=== PATIENT | male | born 1960 | race Asian ===

== ENCOUNTER 2025-03-07 10:21 | Outpatient (CLI) | payer OTHER, SELFPAY ==
--- OUTSIDE RECORDS SUMMARY | 2025-03-07 10:30 | XMS_ITS | Clinical Summary ---
Author Organization [facility] Address [address] [place] [address] Care Team Providers Care Apartment Maintenance Worker Name Role Phone Unavailable Primary Care Provider Unavailabl e Social History Tobacco Use Types Packs/Day Years Used Date Smoking Tobacco: Never Assessed Sex and Gender Information Value Date Recorded Sex Assigned at Not on file Legal Sex Male 8:22 PM CDT Gender Identity Not on file Sexual Orientation Not on file Plan of Treatment Health Maintenance Due Date Last Done Comments Colorectal Cancer Screening Colonoscopy (10 Years) 1961 Annual Physical 1964 Hepatitis C 1979 DTaP, Tdap and Td Vaccines ( 1 - Tdap) 1980 Pneumococcal Vaccine: 50+ Ye ars (1 of 1 - PCV) 2011 Zoster Vaccines (1 of 2) 2011 COVID-19 Vaccine ( - 2023-2 5 season) 2024 RSV Immunization or 60+ Years (1 - 1-dose 75+ series) 2036 Meningococcal B Vaccine Aged Out No l onger eligible based on patient's age to complete this topic Meningococcal Vaccine Aged Out No adalberto baylee eligible based on patient's age to complete this topic RSV Immunizations Under 20 Months Aged Out No longer eligible based on patient's age to complete this topic
--- NOTE | 2025-03-07 10:36 | ECG_ITS ---
Test Date: 2025-03-07 10:42:32 Measurements Intervals [place] Rate: 68 P: 51 ID: 171 QRS: 4 QRSD: 90 T: 19 QT: 374 QTc: 400 Interpretive Statements SINUS RHYTHM BASELINE ARTIFACT- III NORMAL ECG No previous ECG available for comparison Electronically Signed On 03-07-2025 10:44:25 CDT by Alireza Gaitan D.O.
== END 2025-03-07 10:22 | disposition home or self-care (01) ==
LOC: ANHCARD 10:28
PROVIDERS: PCP Internal Medicine; Visit Provider Family Medicine
DX: R07.9 Chest pain, unspecified (principal)
CPT/HCPCS: 93005

== ENCOUNTER 2025-04-06 13:19 | Emergency (ER) | payer OTHER, SELFPAY ==
--- NOTE | ~2025-04-06 | XR_ITS ---
EXAMINATION: XR chest 2V DATE: 04/06/2025 14:05 INDICATION: Left-sided chest pain TECHNIQUE: PA and lateral views of the chest were obtained. COMPARISON: None FINDINGS: The lungs are clear with no focal airspace opacities, pulmonary edema, pleural effusion or pneumothorax. The cardiomediastinal silhouette is normal. Mild to moderate thoracic spondylosis. IMPRESSION: 1. No acute cardiopulmonary disease. Reviewed, dictated and finalized at location A.
--- NOTE | 2025-04-06 13:20 | ECG_ITS ---
Test Date: 2025-04-06 13:24:25 Measurements Intervals [place] Rate: 77 P: 44 CT: 153 QRS: -1 QRSD: 92 T: 36 QT: 357 QTc: 405 Interpretive Statements SINUS RHYTHM CANNOT R/O SEPTAL INFARCT, AGE INDETERMINATE BASELINE ARTIFACT- III ABNORMAL ECG Compared to ECG 03/07/2025 10:42:32 No significant changes Electronically Signed On 04-06-2025 15:48:45 CDT by Alireza Gaitan D.O.
--- OUTSIDE RECORDS SUMMARY | 2025-04-06 13:21 | XMS_ITS | Clinical Summary ---
Author Organization [facility] Address [address] [place] [id number] Care Team Providers Care Sales And Marketing Analyst Name Role Phone Unavailable Primary Care Provider [...]
[2025-04-06 13:36] VITALS: BP 154/87; PULSE 88; RESP 17; TEMP 36.4; O2SAT 100
[2025-04-06 13:42] VITALS: PULSE 90; O2SAT 99
[2025-04-06] MEDS: ASPIRIN 81 MG CHEWABLE TABLET 324 MG PO (13:48)
[2025-04-06 13:55] LABS: Hematocrit 40.6 % (42.0-52.0); Hemoglobin 13.8 g/dL (14.0-18.0); Immature Granulocyte Percent A 0.2 % (0-0.5); Lymphocytes Absolute Auto 1.78 K/mm3 (0.9-3.2); Mean Corpuscular HGB Conc 34.0 g/dl (32-36); Mean Corpuscular Hemoglobin 30.5 pg (26-34); Mean Corpuscular Volume 89.6 fl (80-100); Nucleated Red Blood Cells Absolute Auto 0.000 K/mm3 (0.0-0.012); Nucleated Red Blood Cells Perc 0.0 % (0.0-0.2); Platelet Count Result 223 k/mm3 (150-375); Red Blood Count 4.53 M/mm3 (4.6-6.20); White Blood Count 4.3 K/mm3 (4.5-10.0)
[2025-04-06 14:08] LABS: Alanine Aminotransferase 31 U/L (6-50); Albumin Level 4.5 g/dL (3.5-5.1); Alkaline Phosphatase 47 U/L (38-126); Anion Gap 8 mmol/L (4-12); Aspartate Amino Transferase 30 U/L (17-59); Bilirubin,Total 0.9 mg/dL (0.2-1.3); Blood Urea Nitrogen 22 mg/dL (9-20); Calcium 9.5 mg/dL (8.4-10.2); Carbon Dioxide 26 mmol/L (22-30); Chloride 105 mmol/L (98-107); Estimated CRCL calculation 65 ml/min; Estimated Glomerular Filt Rate > 60; Glucose 120 mg/dL (65-110); Lipase 104 U/L (23-300); Potassium 3.9 mmol/L (3.4-5.0); Sodium 139 mmol/L (137-145); Total Protein 7.5 g/dL (6.3-8.2)
[2025-04-06 14:16] LABS: INR 1.0; Prothrombin Time 13.4 Seconds (11.1-14.7)
[2025-04-06 14:17] LABS: Partial Thromboplastin Time 29.9 Seconds (22.3-36.8)
[2025-04-06 14:18] LABS: Troponin I < 0.012 ng/mL (0.000-0.034)
--- NOTE | 2025-04-06 14:32 | ED_ITS ---
HPI - General Adult General Chief complaint: Chest Pain Stated complaint: left sided CP to shoulder and back Time Seen by Provider: 04/06/25 13:57 History of Present Illness HPI narrative: 64-year-old male presents emergency department for evaluation for intermittent left-sided chest pain. Patient reports over the last 2 months he had had infrequent left-sided chest pain that was very short lasting. Patient reports over the course of the last week he has had worsening episodes left-sided chest pain. Patient describes the pain as being very sharp and short lasting but also does describe an underlying dull pressure. Patient denies any prior cardiac history. Patient reports he did have a stress test approximately 10 years ago. Patient did have follow-up with his primary care physician on March 07 for a cold sore and was started on acyclovir at that time. Patient reports that the colds or resolved after few days any stop taking the acyclovir. Patient then began having left armpit pain a few days ago and patient does have a vesicular rash under his left arm. Patient did start retaking his home acyclovir. Related Data Allergies Allergy/AdvReac Type Severity Reaction Status Date / Time Iodinated Contrast Media Allergy Hives Verified 04/06/25 13:36 iohexol (From contrast - CT, Allergy Hives Verified 04/06/25 13:36 X-RAY) Review of Systems 2 Review of Systems: All systems reviewed & are unremarkable except as noted in HPI and below Exam 2 Narrative: APPEARANCE: Well appearing, no pain, no distress, well-nourished. HEAD: normocephalic, atraumatic. EYES: PERRLA/EOMI, conjunctivae clear. NOSE: Normal no drainage EARS:TMS clear with good light reflex. THROAT: Pharynx clear, no exudate. NECK: Supple. No adenopathy, no masses. RESPIRATORY: Airway patent, respirations nonlabored. Clear to auscultation bilaterally, no rales, rhonchi, wheezing. CARDIOVASCULAR: Regular rate and rhythm without murmurs rubs or gallops. ABDOMINAL: Soft, nontender, nondistended, normal bowel sounds MUSCULOSKELETAL: Moves all extremities. Strength/ROM intact, No edema, No calf tenderness. NEURO: Alert. Cranial nerves II through XII intact. Good gait. Good coordination SKIN: Vesicular rash under left arm Course Vital Signs Vital signs: Vital Signs Temperature 97.5 F L 04/06/25 13:36 Pulse Rate 88 04/06/25 13:36 Respiratory Rate 17 04/06/25 13:36 Blood Pressure 154/87 H 04/06/25 13:36 Pulse Oximetry 100 04/06/25 13:36 Oxygen Delivery Room Air 04/06/25 13:36 Temperature 97.5 F L 04/06/25 13:36 Pulse Rate 59 L 04/06/25 17:15 Respiratory Rate 13 04/06/25 17:15 Blood Pressure 157/91 H 04/06/25 17:15 Pulse Oximetry 100 04/06/25 17:15 Oxygen Delivery Room Air 04/06/25 13:42 Medical Decision Making MDM Narrative Medical decision making narrative: 64-year-old male presents emergency department for evaluation for intermittent chest pain and a vesicular rash. Patient is currently afebrile with no leukocytosis and hemoglobin of 13.8. Patient's INR is 1.0. Patient has no acute abnormalities on his CMP lipase is negative patient's troponin is not elevated. Chest x-ray shows no acute cardiopulmonary abnormality an EKG shows normal sinus rhythm with no evidence of infarction. Rash in left axilla as concerning for shingles. Patient was switched from a low-dose acyclovir to a higher dose valacyclovir. Patient prefers to take Tylenol and ibuprofen for pain control. Patient was encouraged of close follow-up with his primary care physician for additional outpatient cardiac testing. Patient family were also updated reasons to return to the emergency department. Patient was well- appearing at time of discharge and states that his symptoms were significantly improved. Differential Diagnosis Differential Diagnosis: Chest pain, ACS, pneumonia, shingles, pneumothorax Vital Signs Vital Signs: Vital Signs Temperature 97.5 F L 04/06/25 13:36 Pulse Rate 88 04/06/25 13:36 Respiratory Rate 17 04/06/25 13:36 Blood Pressure 154/87 H 04/06/25 13:36 Pulse Oximetry 100 04/06/25 13:36 Oxygen Delivery Room Air 04/06/25 13:36 Temperature 97.5 F L 04/06/25 13:36 Pulse Rate 59 L 04/06/25 17:15 Respiratory Rate 13 04/06/25 17:15 Blood Pressure 157/91 H 04/06/25 17:15 Pulse Oximetry 100 04/06/25 17:15 Oxygen Delivery Room Air 04/06/25 13:42 Lab Data Lab results reviewed: Yes I reviewed the patient's lab results. 04/06/25 13:50 04/06/25 13:50 Labs: Lab Results 04/06/25 04/06/25 Range/Units 13:50 16:28 WBC 4.3 L (4.5-10.0) K/mm3 RBC 4.53 L (4.6-6.20) M/mm3 Hgb 13.8 L (14.0-18.0) g/dL Hct 40.6 L (42.0-52.0) % MCV 89.6 (80-100) fl MCH 30.5 (26-34) pg MCHC 34.0 (32-36) g/dl RDW 11.9 (11.5-14.5) % Plt Count 223 (150-375) k/mm3 MPV 9.1 (7.4-10.4) fl Immature Gran % (Auto) 0.2 (0-0.5) % Neut % (Auto) 44.9 L (45.5-73.1) % Lymph % (Auto) 41.3 (18.3-44.2) % Cannon % (Auto) 11.1 H (2.6-8.5) % Eos % (Auto) 1.6 (0-4.4) % Baso % (Auto) 0.9 (0.2-1.2) % Lymph # (Auto) 1.78 (0.9-3.2) K/mm3 Cannon # (Auto) 0.5 (0.1-0.6) K/mm3 Eos # (Auto) 0.1 (0-0.3) K/mm3 Baso # (Auto) 0.0 (0.0-0.1) K/mm3 Abs Immat Gran (auto) 0.01 (0.00-0.031) K/mm3 Absolute Neuts (auto) 1.9 (1.3-6.7) K/mm3 Absolute Nucleated RBC 0.000 (0.0-0.012) K/mm3 Nucleated RBC % 0.0 (0.0-0.2) % PT 13.4 (11.1-14.7) Seconds INR 1.0 APTT 29.9 (22.3-36.8) Seconds D-Dimer < 0.27 (<0.48) ug/mL Sodium 139 (137-145) mmol/L Potassium 3.9 (3.4-5.0) mmol/L Chloride 105 (98-107) mmol/L Carbon Dioxide 26 (22-30) mmol/L Anion Gap 8 (4-12) mmol/L BUN 22 H (9-20) mg/dL Creatinine 0.92 (0.7-1.3) mg/dL Estim Creat Clear Calc 65 ml/min Estimated GFR > 60 (59 - ) Glucose 120 H (65-110) mg/dL Calcium 9.5 (8.4-10.2) mg/dL Total Bilirubin 0.9 (0.2-1.3) mg/dL AST 30 (17-59) U/L ALT 31 (6-50) U/L Alkaline Phosphatase 47 (38-126) U/L Troponin I < 0.012 < 0.012 (0.000-0.034) ng/mL Total Protein 7.5 (6.3-8.2) g/dL Albumin 4.5 (3.5-5.1) g/dL Lipase 104 (23-300) U/L Imaging Data Radiologist's impression: Impressions Chest X-Ray 04/06/25 14:06 IMPRESSION: 1. No acute cardiopulmonary disease. ECG Data EKG #1: EKG Interpretation: normal rate, sinus rhythm, no ectopy, no ST changes, normal QRS, normal QT and NL axis Discharge Plan Discharge Clinical Impression: Chest pain, Shingles Patient Disposition: Home Condition: Stable Instructions: Antibiotic Form, Chest Pain (ED), Shingles (ED) Additional Instructions: Valacyclovir as directed for suspected shingles. Tylenol and ibuprofen for pain control. Have close follow-up with primary care physician for additional outpatient cardiac testing. If you have any worsening symptoms please call or return to the emergency department. Patient Language: Pakistani Prescriptions: New valacyclovir [Valtrex] 1 gram tablet 1,000 mg PO Q8H 10 Days Qty: 30 0RF Follow-up/Referrals: Sebastián Kirk MD [Physician, Hospitalist]
[2025-04-06] MEDS: KETOROLAC 15 MG/ML VIAL (*BKC) IV PUSH (14:56)
[2025-04-06 14:58] VITALS: BP 154/93; PULSE 72; RESP 12; O2SAT 99
[2025-04-06 15:45] VITALS: BP 140/89; PULSE 65; RESP 13; O2SAT 100
--- NOTE | 2025-04-06 16:14 | ECG_ITS ---
Test Date: 2025-04-06 16:25:33 Measurements Intervals [place] Rate: 61 P: 27 CT: 121 QRS: 4 QRSD: 85 T: 38 QT: 383 QTc: 387 Interpretive Statements SINUS RHYTHM BASELINE ARTIFACT- I, II, III, AVR, AVL, AVF, V1 ABNORMAL ECG Compared to ECG 04/06/2025 13:24:25 NO SIGNIFICANT CHANGE Electronically Signed On 04-06-2025 21:12:16 CDT by Alireza Gaitan D.O.
[2025-04-06 16:58] LABS: Troponin I < 0.012 ng/mL (0.000-0.034)
[2025-04-06 17:15] VITALS: BP 157/91; PULSE 59; RESP 13; O2SAT 100
== END 2025-04-06 17:44 | disposition home or self-care (01) ==
PROVIDERS: Emergency Medicine; Emergency Provider Emergency Medicine; PCP Family Medicine
DX: R07.9 Chest pain, unspecified (principal); B02.9 Zoster without complications
CPT/HCPCS: 36415; 71046; 80053; 83690; 84484; 85025; 85380; 85610; 85730; 93005; 96374; 99284; A9270; J1885

== ENCOUNTER 2025-06-06 10:40 | Outpatient (CLI) | payer OTHER, SELFPAY ==
--- NOTE | ~2025-06-06 | XR_ITS ---
Examination: XR shoulder LT min 2V Clinical History: Pain in left shoulder Comparison: None Technique: 2 views left shoulder Findings/impression: 1. No fracture or dislocation left shoulder given 2 view series. 2. Mild degenerative changes glenohumeral joint. Reviewed, dictated and finalized at location R.
--- OUTSIDE RECORDS SUMMARY | 2025-06-06 11:07 | XMS_ITS | Clinical Summary ---
Author Organization [facility] Address [address] [place] [address] Care Team Providers Care Surgical Brace Maker Name Role Phone Unavailable Primary Care Provider [...] of 2) 2011 COVID-19 Vaccine ( - 2024-2 6 season) 2025 Influenza Adult (#1) 2025 RSV Immunization or 60+ Years (1 - 1-dose 75+ series) 2036 Hepatitis A Vaccines Aged Out No long er eligible based on patient's age to complete this topic Meningococcal B Vaccine Aged Out No l onger eligible based on patient's age to complete this topic Meningococcal Vaccine Aged Out No adalberto baylee eligible based on patient's age to complete this topic RSV Immunizations Under 20 Months Aged Out No longer eligible based on patient's age to complete this topic
--- OUTSIDE RECORDS SUMMARY | 2025-06-06 11:07 | XMS_ITS | Clinical Summary ---
Author Organization [facility] [address] Address [address] [place] [id number] Care Team Providers Care Tyre Finisher And Examiner Name Role Phone Lalita Lindsey NP Primary Care Provider [phone] Allergies No known active allergies Medications losartan (COZAAR) 50 mg tablet Take 1 tablet (50 mg total) by mouth daily 03/05/2025 Active Active Problems Problem Noted Date Diagnosed Date Hepatitis B virus infection 06/11/2012 Encounters Date Type Department Care Team Description 05/16/2025 Telephone [facility] Orthopedic and Sports Medicine [address] [place] [phone] Sarah Xavier PA 05/01/2025 10:55 AM CDT Lab [address] [address] Arthritis of carpometacarpal joint; Polyarthralgia 05/01/2025 10:20 AM CDT Ancillary Procedure [facility] Imaging at [address] [phone] 05/01/2025 9:30 AM CDT Office Visit [facility] Orthopedic [facility] Sports Medicine [address] [place] [phone] Sarah Xavier PA Right hand pain (Primary Dx); Left hand pain; Arthritis of carpometacarpal joint; Polyarthralgia 05/01/2025 9:20 AM CDT Ancillary Procedure [facility] Imaging at [address] [phone] from Last 3 Months Social History Tobacco Use Types Packs/Day Years Used Date Smoking Tobacco: Never Assessed Sex and Gender Information Value Date Recorded Sex Assigned at Not on file 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 Gender Identity Not on file Sexual Orientation Not on file Obstetrics History Last Filed Vital Signs Vital Sign Reading Time Taken Comments Blood Pressure 161/93 05/01/2025 9:32 AM CDT Pulse 77 05/01/2025 9:32 AM CDT Temperature - - Respiratory Rate - - Oxygen Saturation - - Inhaled Oxygen Concentration - - Weight 73.5 kg (162 lb) 05/01/2025 9:32 AM CDT Height 172.7 cm (5' 8) 05/01/2025 9:32 AM CDT Body Mass Index 24.63 05/01/2025 9:32 AM CDT Plan of Treatment Health Maintenance Due Date Last Done Comments Colon Cancer Screening-Colonoscopy 1961 Depression Screening 1961 Hepatitis C Screening 1961 Prostate Cancer Screening-PSA 1961 DTaP/Tdap/Td Vaccine (1 - Tdap) 1972 Regular Well Visit/Exam 18-64 1979 Pneumococcal vaccine <65 (1 of 2 - PCV) 1980 Zoster Vaccine (1 of 2) 2011 Covid-19 Vaccine (2 - 2024- season) 04/07/202502/2021 Influenza Vaccine (#1) 2025 Procedures Procedure Name Priority Date/Time Associated Diagnosis Comments BERENICE QUALITATIVE WITH REFLEX TO BERENICE QUANTITATIVE Routine 05/01/2025 11:01 AM CDT Arthritis of carpometacarpal joint Polyarthralgia RHEUMATOID FACTOR Routine 05/01/2025 11:01 AM CDT Arthritis of carpometacarpal joint Polyarthralgia ERYTHROCYTE SEDIMENTATION RATE Routine 05/01/2025 11:01 AM CDT Arthritis of carpometacarpal joint Polyarthralgia CRP (ACUTE PHASE) Routine 05/01/2025 11:01 AM CDT Arthritis of carpometacarpal joint Polyarthralgia XR HAND RIGHT 3 OR MORE VIEWS Schedule Routine, Read Routine (OP Routine) 05/01/2025 10:21 AM CDT Right hand pain XR HAND LEFT 3 OR MORE VIEWS Schedule Routine, Read Routine (OP Routine) 05/01/2025 9:28 AM CDT Right hand pain from Last 3 Months Results * BERENICE ab ql w/rflx to BERENICE qn (05/01/2025 11:01 AM CDT) BEERNICE Negative Comment: Interpretive Data Normal range for BERENICE Qualitative Antibody = Negative. 1. BERENICE is performed using indirect immunofluorescence against HEp-2 cells 2. BERENICE titers are performed on all positive qualitative results. 3. A significantly positive BERENICE result is defined as a positive nuclear fluorescence at a titer of 1:80 or greater. 4. 15% of normal people above age 65 have significantly positive BERENICE results. 5% or less of normal people age 65 or under have significantly positive BERENICE results. Current interpretive data was last revised on 2020. Testing performed by: [facility], [address] [facility]., [address] Blood 05/01/2025 11:0 1 AM CDT 05/01/2025 5:33 PM CDT Sarah MORIN LAB BLOOD ORDERABLES Fi nal Result Performing Organization Address [facility] Co de Phone Number [address] [place] [address] * Erythrocyte sedimentation rate (05/01/2025 11:01 AM CDT) Pathologist [facility] Erythrocyte sedimentation rate 4 1 - 20 mm/hr Blood 05/01/2025 11:0 1 AM CDT 05/01/2025 2:06 PM CDT Sarah MORIN LAB BLOOD ORDERABLES Fi nal Result Performing Organization Address City/[facility]/ZIP Co de Phone Number [address] [place] [address] * Rheumatoid factor (05/01/2025 11:01 AM CDT) Rheumatoid factor, quant <10.0 <=15.0 IUnits/mL Blood 05/01/2025 11:0 1 AM CDT 05/01/2025 2:06 PM CDT Result [facility] Sarah MORIN LAB BLOOD ORDERABLES Fi nal Result Performing Organization Address [facility] Co de Phone Number [address] [place] [address] * CRP (acute phase) (05/01/2025 11:01 AM CDT) Pathologist [facility] CRP <0.2 <=10.0 mg/L Blood 05/01/2025 11:0 1 AM CDT 05/01/2025 2:06 PM CDT Result [facility] Sarah MORIN LAB BLOOD ORDERABLES Fi nal Result Performing Organization Address [facility] de Phone Number [address] [address] * XR Hand Right 3+ Vw (05/01/2025 10:21 AM CDT) Anatomical Region Laterality Modality Upper Extremities, Hand Right Digital Radiography Narrative 05/16/2025 11:21 PM CDT Radiographs of the right hand reviewed and interpreted. No acute fractures noted. Erosive, degenerative changes are present of the carpometacarpal joints, with [id number] joint space narrowing, osteophyte formation, and subchondral changes. Result [facility] Sarah MORIN IMG XR PROCEDURES Final Result * XR Hand Left 3 or More Views (05/01/2025 9:28 AM CDT) Anatomical Region Laterality Modality Upper Extremities, Hand Left Digital Radiography Narrative 05/16/2025 11:21 PM CDT Radiographs of the left hand reviewed and interpreted. No acute fractures noted. Erosive, degenerative changes are present of the carpometacarpal joints, with [id number] joint space narrowing, osteophyte formation, and subchondral changes. Sarah MORIN IMG XR PROCEDURES Final Result from Last 3 Months Insurance [facility] Care Teams Tyre Finisher And Examiner Relationship Specialty Start Date End Date Lalita Lindsey NP [phone] [address] PCP - General Family Medicine 03/26/25
== END 2025-06-06 10:41 | disposition home or self-care (01) ==
LOC: ANHIMG 10:42
PROVIDERS: PCP Family Medicine; Visit Provider Nurse Practitioner Family
DX: M19.012 Primary osteoarthritis, left shoulder (principal)
CPT/HCPCS: 73030